=== PATIENT | female | born 1960 | race Caucasian/White ===

== ENCOUNTER → 2019-03-15 | Outpatient (CLI) | payer OTHER | LOC: M.CT 08:00 | DX: R91.8 Other nonspecific abnormal finding of lung field (principal); J98.4 Other disorders of lung ==

== ENCOUNTER → 2019-06-23 | Outpatient (CLI) | payer OTHER | LOC: M.CT 11:30 | DX: R91.8 Other nonspecific abnormal finding of lung field (principal); L92.8 Other granulomatous disorders of the skin and subcutaneous tissue ==